=== PATIENT | female | born 1960 | race African-American/Black ===

== ENCOUNTER → 2016-05-22 | Outpatient (CLI) | payer OTHER ==
[2015-05-06 20:32] VITALS: BP 133/72
[~2016-05-22] MED LIST: CONTRAST GIVEN MC PRN; IOHEXOL 300 MG/ML 75 ML VIAL IV ONE
--- NOTE | 2016-05-22 14:11 | RAD ---
CT study of the abdomen and pelvis with and without contrast; CT urogram Clinical indications: Hematuria for one month. Hysterectomy. Technique: Noncontrast helical CT scanning of the abdomen and pelvis was performed. Following IV infusion of 75 mL of Omnipaque 300, helical CT scanning of the abdomen and pelvis was performed using the CT urogram protocol. A 3-D CT urogram reconstruction was generated. PQRS Compliance Statement: One or more of the following individualized dose reduction techniques were utilized for this examination: 1. Automated exposure control 2. Adjustment of the mA and/or kV according to patient size 3. Use of iterative reconstruction technique Comparison: No previous abdomen or pelvis CT. Findings: No urinary tract stone or hydronephrosis or hydroureter is seen. Urinary bladder is not distended. There is mild circumferential urinary bladder wall thickening which may be due to incomplete distention or could be seen with cystitis. No other filling defects are seen within the urinary bladder. There is no filling defect of either upper urinary tract. No renal mass is seen. There is a left adrenal mass which measures 3.4 cm and measures 23 Hounsfield units. Therefore, this does not definitely represent an adrenal adenoma. There is diffuse fatty infiltration of the liver. No hepatic mass is seen. The spleen and pancreas and gallbladder are normal. No extra hepatic biliary ductal dilatation is seen. No focal aneurysmal dilatation of the abdominal aorta is seen. No enlarged abdominal or pelvic lymphadenopathy is seen. No obstructive bowel pattern is seen. No free air or free fluid or mesenteric inflammatory change is seen. No lung base consolidation is evident. The heart size is at the upper limits of normal. IMPRESSION: Urinary bladder is not completely distended. There is mild circumferential urinary bladder wall thickening which most likely is due to incomplete distention but could be seen with cystitis if there are clinical findings of such. No significant abnormality of the urinary tract is seen otherwise. 3.4 cm left adrenal mass. This could represent a nonfat laden adrenal adenoma or adrenal malignancy if there is a primary history of malignancy. If there is a history of primary malignancy, then recommend a PET scan. If not, then recommend an abdomen CT follow-up study in 6 months to ensure stability. Fatty infiltration of the liver.
== END | disposition home or self-care (01) ==
LOC: CT 11:43
PROVIDERS: ATTEND Nurse Practitioner Occupational Health
DX: R31.9 Hematuria, unspecified (principal)
CPT/HCPCS: 74178; Q9967

== ENCOUNTER → 2016-05-22 | Outpatient (CLI) | payer OTHER ==
[2015-05-06 20:32] VITALS: BP 133/72
[2016-05-22 23:09] LABS: HEP B SURFACE ABDY Reactive (.)
== END | disposition home or self-care (01) ==
LOC: LAB 11:40
PROVIDERS: ATTEND Internal Medicine Gastroenterology
DX: B19.10 Unspecified viral hepatitis B without hepatic coma (principal)
CPT/HCPCS: 36415; 86706; 86803; 87340; 87341

== ENCOUNTER → 2016-06-12 | Day surgery (SDC) | payer OTHER ==
[~2016-06-12] MED LIST changes: +ASPI81TA2 PO; +BENZ100C2 PO; +CLON0.1T PO; -CONTRAST GIVEN MC PRN; +FENTANYL PF 100 MCG/2 ML VIAL. IV PRN; +HYDROMORPHONE 2 MG/ML VIAL. IV PRN; -IOHEXOL 300 MG/ML 75 ML VIAL IV ONE; +IV RINGERS,LACTATED 1000ML 1,000 ML IV SCH; +LIDOCAINE 1% 1 ML SYRINGE. ID PRN; +LIDOCAINE 2% PF Vial for OR 5 ML VIAL. ONE; +METF500T4 PO; +MORPHINE SULFATE 2 MG/ML DISP.SYRIN. IV PRN; +NICO1PAT25 TD; +ONDANSETRON PF 4 MG/2 ML VIAL. IV PRN; +POTA20TA82 PO; +PROAIR HFA8.5 GM INH; +PROCHLORPERAZINE 10 MG/2 ML VIAL. IV PRN; +PROPOFOL 20 ML IV ONE; +SIMV40TA3 PO
[2016-06-12 11:00] VITALS: BP 171/84
== END | disposition home or self-care (01) ==
LOC: ENDOS 09:13
PROVIDERS: ATTEND Internal Medicine Gastroenterology
DX: Z12.11 Encounter for screening for malignant neoplasm of colon (principal); K64.0 First degree hemorrhoids; K29.50 Unspecified chronic gastritis without bleeding; J45.909 Unspecified asthma, uncomplicated; I10 Essential (primary) hypertension; E11.9 Type 2 diabetes mellitus without complications; Z79.82 Long term (current) use of aspirin; Z90.710 Acquired absence of both cervix and uterus
CPT/HCPCS: 43235; 45378; 82947; J2704

== ENCOUNTER → 2016-06-19 | Outpatient (CLI) | payer OTHER ==
[2016-06-12 11:00] VITALS: BP 171/84
[~2016-06-19] MED LIST changes: -FENTANYL PF 100 MCG/2 ML VIAL. IV PRN; -HYDROMORPHONE 2 MG/ML VIAL. IV PRN; -IV RINGERS,LACTATED 1000ML 1,000 ML IV SCH; -LIDOCAINE 1% 1 ML SYRINGE. ID PRN; -LIDOCAINE 2% PF Vial for OR 5 ML VIAL. ONE; -MORPHINE SULFATE 2 MG/ML DISP.SYRIN. IV PRN; -ONDANSETRON PF 4 MG/2 ML VIAL. IV PRN; -PROCHLORPERAZINE 10 MG/2 ML VIAL. IV PRN; -PROPOFOL 20 ML IV ONE
--- NOTE | 2016-06-19 10:14 | RAD ---
EXAM: Nuclear gastric emptying scan. HISTORY: Epigastric pain. Early satiety. COMPARISON: None. TECHNIQUE: Serial static images were obtained over the stomach following oral administration of 2 mCi of 99m-Tc sulfur colloid in an egg based meal. FINDINGS: The stomach appears normal in contour. There is clearance of activity into the small bowel. Gastric emptying half-time is 139 minutes (normal <90 minutes). Refer to the worksheets for more detail. IMPRESSION: 1. Delayed gastric emptying with half-time 139 minutes.
== END | disposition home or self-care (01) ==
LOC: NM 06:52
PROVIDERS: ATTEND Internal Medicine Gastroenterology
DX: K30 Functional dyspepsia (principal)
CPT/HCPCS: 78264; A9541

== ENCOUNTER 2016-08-12 12:32 | Emergency (ER) | payer OTHER ==
[~2016-08-12] VITALS: Ht 165.1 cm; Wt 59.0 kg
[2016-08-12 12:45] VITALS: BP 138/67
[2016-08-12] MEDS ORDERED: DIPHTH,PERTUSS(ACELL),TET TOX 0.5 ML DISP.SYRIN. VAX IM ONE (13:00)
[2016-08-12] MEDS ORDERED: HYDROCODONE/APAP 5/325MG TABLET. PO ONE (13:00)
--- NOTE | 2016-08-12 13:24 | PHYS DOC ---
Past Medical History Past Medical History: Asthma, Diabetes-Type II, Hypertension Past Surgical History: Hysterectomy, Tubal ligation Additional Past Surgical Histo: ectopic Alcohol Use: Heavy Drug Use: None Adult General Chief Complaint Chief Complaint: KNEE INJURY HPI HPI Patient is a 56 year old diabetic female presents emergency Department with complaint of left knee pain, redness and swelling with laceration secondary to a fall that occurred approximately 4 days ago. Patient states that she had been pretty much ignoring her knee even though she was experiencing pain. She noticed some redness and swelling that began approximately 24 hours ago. She states that she has not been taking any antibiotics. She also states that she does not monitor her blood sugar. She takes metformin for diabetes. She does have a primary care doctor in which she has access to follow-up, but states that she does not do so. She denies fevers or chills as well as myalgias. She denies numbness or tingling to her left lower extremity. Review of Systems Review of Systems Constitutional: Denies fever or chills [] Eyes: Denies change in visual acuity, redness, or eye pain [] HENT: Denies nasal congestion or sore throat [] Respiratory: Denies cough or shortness of breath [] Cardiovascular: No additional information not addressed in HPI [] GI: Denies abdominal pain, nausea, vomiting, bloody stools or diarrhea [] : Denies dysuria or hematuria [] Musculoskeletal: Denies back pain or joint pain [] Integument: Denies rash or skin lesions [] Neurologic: Denies headache, focal weakness or sensory changes [] Endocrine: Denies polyuria or polydipsia [] Current Medications Current Medications Current Medications Medications (Trade) Dose Ordered Sig/Rachel Start Time Stop Time Status Last Admin Dose Admin Acetaminophen/ Hydrocodone Bitart (Lortab 5/325) 1 tab 1X ONCE 08/12/16 13:00 08/12/16 13:01 DC 08/12/16 13:09 1 TAB Diphtheria/ Tetanus/Acell Pertussis (Boostrix) 0.5 ml ONCE ONCE 08/12/16 13:00 08/12/16 13:01 DC 08/12/16 13:11 0.5 ML Allergies Allergies Allergies Coded Allergies Type Severity Reaction Last Updated Verified No Known Drug Allergies 06/12/16 No Physical Exam Physical Exam Constitutional: Well developed, well nourished, no acute distress, non-toxic appearance. [] HENT: Normocephalic, atraumatic, bilateral external ears normal, oropharynx moist, no oral exudates, nose normal. [] Eyes: PERRLA, EOMI, conjunctiva normal, no discharge. [] Neck: Normal range of motion, no tenderness, supple, no stridor. [] Cardiovascular:Heart rate regular rhythm, no murmur [] Lungs & Thorax: Bilateral breath sounds clear to auscultation [] Abdomen: Bowel sounds normal, soft, no tenderness, no masses, no pulsatile masses. [] Skin: Warm, dry, no erythema, no rash. [] Back: No tenderness, no CVA tenderness. [] Extremities: Left knee with an overlying abrasion and a puncture wound to the inferior pole of the patella/overlying the patellar tendon region that is draining serosanguineous fluid. There is no purulent drainage. There is some surrounding erythema to the wound itself with overlying scab formation. Patient' s knee itself is without fusiform swelling, erythema or heat to the touch. There is no high riding patella. Extensor mechanism is intact. Ligaments are stable solid endpoints. Neurologic: Alert and oriented X 3, normal motor function, normal sensory function, no focal deficits noted. [] Psychologic: Affect normal, judgement normal, mood normal. [] Current Patient Data Vital Signs Vital Signs Date Time Temp Pulse Resp B/P Pulse Ox O2 Delivery O2 Flow Rate FiO2 08/12/16 13:09 20 Room Air 08/12/16 12:45 97.9 99 98 97.9 Lab Values Laboratory Tests Test 08/12/16 12:55 Glucose (Fingerstick) 139mg/dL (70-99) H EKG EKG [] Radiology/Procedures Radiology/Procedures [facility] [address] [place], [place] [id number] IMAGING REPORT Signed PATIENT: SAM KRAMER ACCOUNT: [id number] : 1960 LOCATION: ER AGE: 56 SEX: F EXAM STATUS: REG ER ORD. PHYSICIAN: MARI GELLER REASON: fall, injured 3 days ago PROCEDURE: KNEE LEFT 3V Left knee, 3 views, 08/12/2016: History: Fall, pain No fracture or dislocation is identified. No significant arthritic change is seen. A small well-defined calcification along the anterior inferior aspect of the patella is most likely old. Minimal arterial calcification is noted posteriorly. There is no radiographic evidence of a significant joint effusion. IMPRESSION: No acute bony abnormality is detected. DICTATED and SIGNED BY: DORY CUEVAS MD DATE: 08/12/16 1322 CC: ELADIA SAINI MD; MARI GELLER; NON,STAFF ~ Course & Med Decision Making Course & Med Decision Making Pertinent Labs and Imaging studies reviewed. (See chart for details) [] Dragon Disclaimer Dragon Disclaimer This electronic medical record was generated, in whole or in part, using a voice recognition dictation system. Departure Departure Impression: Primary Impression: Contusion Additional Impressions: Puncture wound Cellulitis Disposition: HOME, SELF-CARE Condition: GOOD Referrals: ELADIA SAINI MD (PCP) Patient Instructions: Cellulitis, [id number], Contusion, [id number], Diphtheria Toxoid; Tetanus Toxoid Adsorbed, DT, Td, Puncture Wound, [id number] Additional Instructions: 1. The x-rays of your knee here today are normal. More importantly, there is no evidence of foreign bodies in the skin surrounding your knee. 2. You do have a superficial infection surrounding the injury of your knee. This requires antibiotics for treatment. 3. Based on the age of the injury, this area cannot be sewn up as it would have increased risk of infection underneath the surface of the skin that may migrate to your knee. 4. Take the medication as prescribed. 5. Follow-up with primary care doctor's by Wednesday for wound check. Scripts Cephalexin 500 Mg Capsule1 Cap PO TID #30 CAP Prov:MARI GELLER 08/12/16 Hydrocodone/Apap 5-325 ([place] 5-325 Tablet)1 Each Tablet1 Tab PO PRN Q6HRS PRN PAIN #10 TAB Prov:MARI GELLER 08/12/16 Problem Qualifiers MARI GELLER August 12, 2016 13:24
[2016-08-12] MEDS ORDERED: HYDR-971 PO (13:37)
[2016-08-12] MEDS ORDERED: CEPH500C PO (13:37)
== END 2016-08-12 13:52 | disposition home or self-care (01) ==
LOC: ER 12:32
DX: S81.032A Puncture wound without foreign body, left knee, initial encounter (principal); J45.909 Unspecified asthma, uncomplicated; E11.9 Type 2 diabetes mellitus without complications; I10 Essential (primary) hypertension; Z90.710 Acquired absence of both cervix and uterus; Z98.51 Tubal ligation status; W19.XXXA Unspecified fall, initial encounter; Y93.89 Activity, other specified; Y92.89 Other specified places as the place of occurrence of the external cause; Y99.8 Other external cause status
CPT/HCPCS: 73562; 82947; 90471; 90715; 99284-25